=== PATIENT | male | born 1960 | race African-American/Black ===

== ENCOUNTER 2021-01-30 08:27 | Emergency (ER) | payer OTHER ==
--- NOTE | 2021-01-30 10:20 | EDPHYS ---
Physician Documentation [facility] Name: Min Mensah Age: 60 yrs Sex: Male : 1960 Arrival Date: 01/30/2021 Time: 08:29 Bed 20 Private MD: JOÃO Physician El Poe HPI: 01/30 10:29 This 60 yrs old Black Male presents to ER via Ambulatory with complaints of Hand Pain - pm1 left. 10:29 The patient or guardian reports pain. The complaints affect the dorsum of left hand and pm1 left wrist. Context: resulted from a fall, while walking. Onset: The symptoms/episode began/occurred 1 month(s) ago. Modifying factors: The symptoms are alleviated by nothing, the symptoms are aggravated by movement, and use. Associated signs and symptoms: Pertinent negatives: cyanosis distally, decreased sensation distally, numbness distally, tingling distally. Severity of symptoms: in the emergency department the symptoms are unchanged. The patient has not experienced similar symptoms in the past, Has had a prior left thumb injury in the past. The patient has not recently seen a physician. Patient caught his fall with his left hand 1 month ago and reports that at night time he has pain to the dorsum of his left hand and left wrist. Patient reports worse after work. Historical: - Allergies: 09:00 Morphine; iw - Home Meds: 09:00 None [Active]; iw - PMHx: 09:00 Hypertension; Degenerative disc disease; iw - Immunization history:: Flu vaccine is not up to date. - Social history:: Smoking status: Patient reports the use of cigarette tobacco products, smokes one pack cigarettes per day. ROS: 10:29 Constitutional: Negative for fever, chills, and weight loss, Cardiovascular: Negative pm1 for chest pain, palpitations, and edema, Respiratory: Negative for shortness of breath, cough, wheezing, and pleuritic chest pain. 10:29 Skin: Negative for injury, rash, and discoloration, Neuro: Negative for headache, weakness, numbness, tingling, and seizure. 10:29 MS/extremity: Positive for pain, of the left hand and left wrist, Negative for decreased range of motion, deformity, paresthesias, swelling. Exam: 10:29 Constitutional: This is a well developed, well nourished patient who is awake, alert, pm1 and in no acute distress. Head/Face: Normocephalic, atraumatic. 10:29 Skin: Warm, dry with normal turgor. Normal color with no rashes, no lesions, and no evidence of cellulitis. 10:29 Cardiovascular: Exam negative for acute changes, Rate: normal, Rhythm: regular, Pulses: no pulse deficits are appreciated. 10:29 Respiratory: Exam negative for acute changes, respiratory distress, shortness of breath. 10:29 Musculoskeletal/extremity: no tenderness present to left fingers and hand. FROM intact and patient able to make a fist. FROM intact to left wrist and left elbow. No tenderness to wrist, forearm, or elbow. 10:29 Neuro: Orientation: is normal, Mentation: is normal, Sensation: is normal, no obvious gross deficits. Vital Signs: 08:57 BP 135 / 87; Pulse 82; Resp 16; Temp 98.4; Pulse Ox 99% on R/A; Weight 72.57 kg; Height iw 5 ft. 9 in. (175.26 cm); Pain 09/04; 08:57 Body Mass Index 23.63 (72.57 kg, 175.26 cm) iw MDM: 09:06 Patient medically screened. pm1 09:33 ED course: Patient refused pain medications in the ER. pm1 10:18 Data reviewed: vital signs. Data interpreted: Pulse oximetry: on room air is 99 %. pm1 Interpretation: normal. 10:18 ED course: Negative x-ray. Like sprain with overuse. 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 Will discharge home with splint. 12:59 ED course: HEMOTHERAPIST aware reviewed. pm1 01/30 09:19 Order name: Wrist Left (3 View) XRAY; Complete Time: 12:27 pm1 01/30 10:15 Order name: Wrist Splint; Complete Time: 10:25 pm1 Administered Medications: 10:25 Drug: Ibuprofen 600 mg Route: PO; iw Disposition: 13:39 Co-signature as Attending Physician, El ARTHUR I agree with the assessment and onesimo plan of care. Disposition: 01/30/21 10:19 Discharged to Home. Impression: Unspecified sprain of left wrist. - Condition is Stable. - Discharge Instructions: Wrist Pain, Wrist Splint. - Prescriptions for Tramadol 50 mg Oral Tablet - take 1 tablet by ORAL route every 8 hours as needed; 12 tablet. - Medication Reconciliation Form, Thank You Letter, Antibiotic Education, Prescription Opioid Use form. - Follow up: Emergency Department; When: As needed; Reason: Worsening of condition. Follow up: Private Physician; When: 2 - 3 days; Reason: Recheck today's complaints, Continuance of care, Re-evaluation by your physician. - Problem is new. - Symptoms have improved. Signatures: Dispatcher [employer] EDEl Win MD MD cha Williams, Irene, RN RN iw Jorgito Constantino NP BUSINESS INSIGHT AND ANALYTICS MANAGER pm1 Corrections: (The following items were deleted from the chart) 10:43 10:19 01/30/2021 10:19 Discharged to Home. Impression: Unspecified sprain of left iw wrist. Condition is Stable. Forms are Medication Reconciliation Form, Thank You Letter, Antibiotic Education, Prescription Opioid Use. Follow up: Emergency Department; When: As needed; Reason: Worsening of condition. Follow up: Private Physician; When: 2 - 3 days; Reason: Recheck today's complaints, Continuance of care, Re-evaluation by your physician. Problem is new. Symptoms have improved. pm1
--- NOTE | 2021-01-30 10:20 | ER ---
Nurse's Notes [facility] Name: Min Mensah Age: 60 yrs Sex: Male : 1960 Arrival Date: 01/30/2021 Time: 08:29 Bed 20 Private MD: Diagnosis: Unspecified sprain of left wrist Presentation: 01/30 08:57 Chief complaint: Patient states: fell about a month ago, tried to catch himself with iw his left hand, has been having pain in his left hand and wrist since then , has previous injury to that area. Coronavirus screen: At this time, the client does not indicate any symptoms associated with coronavirus-19. Ebola Screen: Patient negative for fever greater than or equal to 101.5 degrees Fahrenheit, and additional compatible Ebola Virus Disease symptoms Patient denies exposure to infectious person. Patient denies travel to an Ebola-affected area in the 21 days before illness onset. No symptoms or risks identified at this time. Initial Sepsis Screen: Does the patient meet any 2 criteria? No. Patient's initial sepsis screen is negative. Does the patient have a suspected source of infection? No. Patient's initial sepsis screen is negative. Risk Assessment: Do you want to hurt yourself or someone else? Patient reports no desire to harm self or others. Onset of symptoms was December 28, 2020. 08:57 Method Of Arrival: Ambulatory iw 08:57 Acuity: JULISSA 4 iw Historical: - Allergies: 09:00 Morphine; iw - Home Meds: 09:00 None [Active]; iw - PMHx: 09:00 Hypertension; Degenerative disc disease; iw - Immunization history:: Flu vaccine is not up to date. - Social history:: Smoking status: Patient reports the use of cigarette tobacco products, smokes one pack cigarettes per day. Screenin:02 Abuse screen: Denies threats or abuse. Denies injuries from another. Nutritional iw screening: No deficits noted. Tuberculosis screening: No symptoms or risk factors identified. Fall Risk None identified. Fall in past 12 months (25 points). Assessment: 09:01 General: Appears in no apparent distress. Behavior is calm, cooperative. Pain: iw Complains of pain in left hand, dorsal aspect of left forearm and left wrist. Neuro: Level of Consciousness is awake, alert, obeys commands, Oriented to person, place, time, situation, Moves all extremities. Full function. Cardiovascular: Patient's skin is warm and dry. Respiratory: Respiratory effort is even, unlabored, Respiratory pattern is regular, symmetrical. Derm: Skin is healthy with good turgor. Musculoskeletal: Range of motion: intact in all extremities. 10:07 Reassessment: Patient appears in no apparent distress at this time. Patient and/or iw family updated on plan of care and expected duration. Pain level reassessed. Patient is alert, oriented x 3, equal unlabored respirations, skin warm/dry/pink. Vital Signs: 08:57 BP 135 / 87; Pulse 82; Resp 16; Temp 98.4; Pulse Ox 99% on R/A; Weight 72.57 kg; Height iw 5 ft. 9 in. (175.26 cm); Pain 1010; 08:57 Body Mass Index 23.63 (72.57 kg, 175.26 cm) iw ED Course: 08:29 Patient arrived in ED. am2 08:59 Triage completed. iw 09:00 Arm band placed on. iw 09:01 Latoya Sethi RN is Primary Nurse. iw 09:05 No provider procedures requiring assistance completed. Patient did not have IV access iw during this emergency room visit. 09:06 Jorgito Constantino NP is PHCP. pm1 09:06 El Poe MD is Attending Physician. pm1 09:15 Patient has correct armband on for positive identification. iw 09:35 Wrist Left (3 View) XRAY In Process Unspecified. EDMS Administered Medications: 10:25 Drug: Ibuprofen 600 mg Route: PO; iw Outcome: 10:19 Discharge ordered by . pm1 10:42 Discharged to home ambulatory. iw 10:42 Condition: good 10:42 Discharge instructions given to patient, Instructed on discharge instructions, follow up and referral plans. medication usage, Demonstrated understanding of instructions, follow-up care, medications, Prescriptions given X 1. 10:43 Patient left the ED. iw Signatures: Dispatcher [employer] EDMS Latoya Sethi RN RN iw Jorgito Constantino NP GOLF BALL COVER TREATER pm1 Lilly Lundy am2
[2021-01-30] MEDS ORDERED: IBUPROFEN 200 MG TAB PO ONE (10:34)
--- NOTE | 2021-01-30 11:37 | RAD REPORT ---
EXAM DESCRIPTION: RAD - Wrist Left 3 View - 01/30/2021 9:29 am CLINICAL HISTORY: PAIN Pain COMPARISON: No comparisons FINDINGS: No fracture or dislocation seen. No foreign body or other soft tissue abnormality. IMPRESSION: Negative examination.
[2021-01-30 14:48] VITALS: BP 135/87; TEMP 98.4; O2SAT 99
== END 2021-01-30 10:43 | disposition home or self-care (01) ==
LOC: ER 08:27
DX: S63.502A Unspecified sprain of left wrist, initial encounter (principal); W18.30XA Fall on same level, unspecified, initial encounter; Y93.01 Activity, walking, marching and hiking; Y92.9 Unspecified place or not applicable; I10 Essential (primary) hypertension; Z88.5 Allergy status to narcotic agent
CPT/HCPCS: 99283

== ENCOUNTER 2021-03-09 11:00 | Emergency (ER) | payer OTHER ==
--- OUTSIDE RECORDS SUMMARY | 2021-03-09 11:03 | XMS REPORT | Continuity of Care Document ---
:1960 Author Organization [facility] t Address [address] [place] [address] Care Team Providers Name Role Phone Unavailable Unavailable Unavailable Problems This patient has no known problems. Allergies, Adverse Reactions, Alerts This patient has no known allergies or adverse reactions. Medications Ordered Filled Start Stop Current Ordering Indication Dosage Frequency Signature Comments Components Source Medication Medication Date Date Medication? Clinician (SIG) Name Name tramadol 50 tramadol 50 No tramadol [facility] mg tablet mg tablet 50 mg da TAKE 1 TAKE 1 tablet [facility] TABLET BY TABLET BY TAKE 1 al MOUTH THREE MOUTH THREE TABLET BY Health TIMES A DAY TIMES A DAY MOUTH [facility] THREE h TIMES A Program DAY alprazolam alprazolam No alprazolam [place] 1 mg tablet 1 mg tablet 1 mg d a TAKE 1 TAKE 1 tablet [facility] TABLET BY TABLET BY TAKE 1 al MOUTH MOUTH TABLET BY Health EVERYDAY AT EVERYDAY AT MOUTH [facility] BEDTIME BEDTIME EVERYDAY h AT BEDTIME Program amlodipine amlodipine No amlodipine [place] 10 mg 10 mg 10 mg da tablet TAKE tablet TAKE tablet [facility] 1 TABLET BY 1 TABLET BY TAKE 1 al MOUTH EVERY MOUTH EVERY TABLET BY Health DAY DAY MOUTH [facility] EVERY DAY h Program hydrocodone hydrocodone No hydrocodon [place] 10 10 e 10 da mg-acetamin mg-acetamin mg-acetami [facility] ophen 325 ophen 325 nophen 325 al mg tablet mg tablet mg tablet Health TAKE 1 TAKE 1 TAKE 1 [facility] TABLET BY TABLET BY TABLET BY h MOUTH 3 MOUTH 3 MOUTH 3 Progra m TIMES A DAY TIMES A DAY TIMES A NEEDED NEEDED DAY NEEDED meloxicam meloxicam No meloxicam [place] 15 mg 15 mg 15 mg da tablet TAKE tablet TAKE tablet [facility] 1 TABLET BY 1 TABLET BY TAKE 1 al MOUTH EVERY MOUTH EVERY TABLET BY Health DAY DAY MOUTH [facility] EVERY DAY h Program Immunizations Ordered Immunization Filled Immunization Date Status Commen ts Source Name Name COVID-19 mRNA, COVID-19, mRNA, 2021-03-01 Completed Vignesh roa LNP-S, PF, 100 LNP-S, PF, 100 16:18:31 [facility] mcg/0.5 mL dose mcg/0.5 mL dose Outr each Program Procedures This patient has no known procedures. Plan of Care Planned Activity Planned Date Details Comments Source Future Appointment 2021-03-29 13:00:00 Covid Covid 19 [facility], [address]; , [place] [address] Encounters Start End Encounter Admission Attending Care Care Encounter Source Date/Time Date/Time Type Type Clinicians Facility Department ID 2021-03-01 2021-03-01 Angela GREGORY [facility] [id number] [facility] 00:00:00 00:00:00 Ramírez Pinto MD: [address] [facility] [address] [facility] [address], [place], [place] Out[place] [id number] h , Ph. Program Results This patient has no known results.
[2021-03-09] MEDS ORDERED: PANTOPRAZOLE 40MG TABLET PO ONE (14:09)
--- NOTE | 2021-03-09 14:15 | RAD REPORT ---
EXAM DESCRIPTION: USExtremity Venous Uni Ltd03/09/2021 2:06 pm CLINICAL HISTORY: left leg pain COMPARISON: None. FINDINGS: Left common femoral, superficial femoral, popliteal and posterior tibial veins are compre ssible and demonstrate augmentation. Doppler demonstrates good flow. IMPRESSION: No evidence of deep venous thrombosis involving the left lower extremity.
--- NOTE | 2021-03-09 14:41 | RAD REPORT ---
EXAM DESCRIPTION: RAD - Knee Left 3 View - 03/09/2021 2:28 pm CLINICAL HISTORY: Left knee pain FINDINGS: No fracture or dislocation is seen. A 28 millimeter calcific density distal left femur probably either an infarct or enchondroma. It is r ecommended that the patient have follow up x-ray 3 months to assess stability. Mild medial joint space narrowing. Spur extends off of superior aspect of the patella
--- NOTE | 2021-03-09 15:23 | ER ---
Nurse's Notes [facility] Name: Min Mensah Age: 60 yrs Sex: Male : 1960 Arrival Date: 03/09/2021 Time: 11:02 Bed 26 Private MD: Diagnosis: Pain in left knee Presentation: 03/09 11:15 Chief complaint: Patient states: 1. L knee pain and swelling since Sunday. No known ll1 trauma. 2. "Ulcers" acting up and N/V for 2 months. No longer has PCP. Coronavirus screen: Client denies travel out of the [place] in the last 14 days. At this time, the client does not indicate any symptoms associated with coronavirus-19. Ebola Screen: Patient denies travel to an Ebola-affected area in the 21 days before illness onset. Initial Sepsis Screen: Does the patient meet any 2 criteria? No. Patient's initial sepsis screen is negative. Does the patient have a suspected source of infection? Yes: Acute abdominal pain. Risk Assessment: Do you want to hurt yourself or someone else? Patient reports no desire to harm self or others. Onset of symptoms was March 07, 2021. 11:15 Method Of Arrival: Ambulatory ll1 11:15 Acuity: JULISSA 3 ll1 Historical: - Allergies: 11:15 Morphine; ll1 - Home Meds: 13:24 None [Active]; sv - PMHx: 11:15 Degenerative disc disease; Hypertension; ll1 - PSHx: 11:15 None; ll1 - Immunization history:: Client reports receiving the 1st dose of the Covid vaccine, Flu vaccine is not up to date. - Social history:: Smoking status: Patient reports the use of cigarette tobacco products, smokes one pack cigarettes per day. Screenin:24 Abuse screen: Denies threats or abuse. Denies injuries from another. Nutritional sv screening: No deficits noted. Tuberculosis screening: No symptoms or risk factors identified. Fall Risk No fall in past 12 months (0 pts). No secondary diagnosis (0 pts). No IV (0 pts). Ambulatory Aid- None/Bed Rest/Nurse Assist (0 pts). Gait- Weak (10 pts.). Mental Status- Oriented to own ability (0 pts). Total Tilley Fall Scale indicates No Risk (0-24 pts). Assessment: 13:19 General: Appears uncomfortable, Behavior is calm, cooperative. Pain: Complains of pain sv in lateral aspect of left knee and medial aspect of left knee Pain currently is 7 out of 10 on a pain scale. Aggravated by repositioning, weight bearing. Neuro: Level of Consciousness is awake, alert, obeys commands, Oriented to person, place, time, situation, Weakness in left leg(s) Gait is unsteady. Respiratory: Airway is patent Respiratory effort is even, unlabored, Respiratory pattern is regular, symmetrical. GI: Reports nausea, vomiting. Musculoskeletal: Range of motion: intact in all extremities. Vital Signs: 11:15 BP 153 / 100; Pulse 65; Resp 17; Temp 97.7; Pulse Ox 98% ; Weight 71.21 kg; Height 5 ll1 ft. 9 in. (175.26 cm); Pain 10/10; 13:22 BP 132 / 90; Pulse 66; Pulse Ox 100% on R/A; Pain 7/10; sv 14:09 BP 133 / 92; Pulse 63; Resp 18; Pulse Ox 100% ; sv 11:15 Body Mass Index 23.18 (71.21 kg, 175.26 cm) ll1 ED Course: 11:02 Patient arrived in ED. ds1 11:14 Arm band placed on. ll1 11:17 Triage completed. ll1 12:58 Mikki Marquez FNP-C [facility]. kb 12:58 Edgar Amaya MD is Attending Physician. kb 13:19 Jackeline Corcoran, LALIT is Primary Nurse. sv 13:25 Patient has correct armband on for positive identification. Placed in gown. Bed in low sv position. Call light in reach. Side rails up X 1. nurse monitoring on. Pulse ox on. NIBP on. Warm blanket given. 14:06 US Extremity Venous Unilateral Ltd In Process Unspecified. EDMS 14:07 X-ray(s) taken. sv 15:39 Christen Negrete, LALIT is Primary Nurse. ss 15:40 No provider procedures requiring assistance completed. Patient did not have IV access ss during this emergency room visit. Rashawn wrap to left knee. Administered Medications: 14:11 Drug: ProTONIX 40 mg Route: PO; sv 15:40 Follow up: Response: No adverse reaction ss Outcome: 15:22 Discharge ordered by . kb 15:40 Discharged to home ambulatory. ss 15:40 Condition: good 15:40 Discharge instructions given to patient, Instructed on discharge instructions, follow up and referral plans. medication usage, Demonstrated understanding of instructions, follow-up care, medications, Prescriptions given X 1. 15:41 Patient left the ED. Signatures: Dispatcher [employer] EDMS Mikki Marquez, PROOF MACHINE OPERATOR SUPERVISOR-C PROOF MACHINE OPERATOR SUPERVISOR-Jackeline Gaston RN RN Nadya Flores ds1 Christen Negrete RN RN ss Lewis, Lynsay, RN RN ll1
--- NOTE | 2021-03-09 15:23 | EDPHYS ---
Physician Documentation [facility] Name: Min Mensah Age: 60 yrs Sex: Male : 1960 Arrival Date: 03/09/2021 Time: 11:02 Bed 26 Private MD: ED Physician Edgar Amaya HPI: 03/09 15:29 This 60 yrs old Black Male presents to ER via Ambulatory with complaints of Knee Pain, kb Nausea/Vomiting. 15:29 The patient presents with pain, tenderness. The complaints affect the posterior aspect kb of left knee and medial aspect of left knee and lateral aspect of left knee. Context: The problem was sustained at home, resulted from an unknown cause, the patient can fully bear weight, the patient is able to ambulate. Onset: The symptoms/episode began/occurred 3 day(s) ago. Modifying factors: The symptoms are alleviated by nothing. the symptoms are aggravated by movement, weight bearing. Associated signs and symptoms: The patient has no apparent associated signs or symptoms. Treatment prior to arrival includes: no previous treatment. Severity of symptoms: At their worst the symptoms were moderate, in the emergency department the symptoms are unchanged. The patient has not experienced similar symptoms in the past. The patient has not recently seen a physician. Pt reports he woke up with left knee pain on Sunday and it hasn't gotten any better. Also reports he doesn't have a pcp anymore to prescribe his medicine for ulcers so they have been acting up. Historical: - Allergies: 11:15 Morphine; ll1 - Home Meds: 13:24 None [Active]; sv - PMHx: 11:15 Degenerative disc disease; Hypertension; ll1 - PSHx: 11:15 None; ll1 - Immunization history:: Client reports receiving the 1st dose of the Covid vaccine, Flu vaccine is not up to date. - Social history:: Smoking status: Patient reports the use of cigarette tobacco products, smokes one pack cigarettes per day. ROS: 15:27 Constitutional: Negative for fever, chills, and weight loss, Respiratory: Negative for kb shortness of breath, cough, wheezing, and pleuritic chest pain, Skin: Negative for injury, rash, and discoloration, Neuro: Negative for headache, weakness, numbness, tingling, and seizure. 15:27 MS/extremity: Positive for pain, of the left knee. 15:27 Abdomen/GI: Positive for "ulcers acting up". kb Exam: 15:28 Constitutional: This is a well developed, well nourished patient who is awake, alert, kb and in no acute distress. Head/Face: Normocephalic, atraumatic. Respiratory: Respirations even and unlabored. No increased work of breathing, no retractions or nasal flaring. Abdomen/GI: Soft, non-tender. No distention Skin: Warm, dry with normal turgor. Normal color. Neuro: Awake and alert, GCS 15, oriented to person, place, time, and situation. Moves all extremities. Normal gait. 15:28 Musculoskeletal/extremity: Extremities: grossly normal except: noted in the posterior aspect of left knee and medial aspect of left knee and lateral aspect of left knee: pain, tenderness, ROM: intact in all extremities, Circulation is intact in all extremities. Sensation intact. Weight bearing: able to fully bear weight. Vital Signs: 11:15 BP 153 / 100; Pulse 65; Resp 17; Temp 97.7; Pulse Ox 98% ; Weight 71.21 kg; Height 5 ll1 ft. 9 in. (175.26 cm); Pain 10/10; 13:22 BP 132 / 90; Pulse 66; Pulse Ox 100% on R/A; Pain 7/10; sv 14:09 BP 133 / 92; Pulse 63; Resp 18; Pulse Ox 100% ; sv 11:15 Body Mass Index 23.18 (71.21 kg, 175.26 cm) ll1 MDM: 12:58 Patient medically screened. kb 14:44 Data reviewed: vital signs, nurses notes. Data interpreted: Pulse oximetry: on room air kb is 100 %. Interpretation: normal. Counseling: I had a detailed discussion with the patient and/or guardian regarding: the historical points, exam findings, and any diagnostic results supporting the discharge/admit diagnosis, radiology results, the need for outpatient follow up, a orthopedic surgeon, to return to the emergency department if symptoms worsen or persist or if there are any questions or concerns that arise at home. 03/09 13:33 Order name: US Extremity Venous Unilateral Ltd; Complete Time: 14:18 kb 03/09 13:33 Order name: Knee Left 3 View XRAY kb 03/09 14:42 Order name: RAD; Complete Time: 14:43 EDHI 03/09 15:23 Order name: Rashawn Wrap; Complete Time: 15:40 kb Administered Medications: 14:11 Drug: ProTONIX 40 mg Route: PO; sv 15:40 Follow up: Response: No adverse reaction ss Disposition: 03/10 07:28 Co-signature as Attending Physician, Edgar Amaya MD I agree with the assessment and kdr plan of care. Disposition: 03/09/21 15:22 Discharged to Home. Impression: Pain in left knee. - Condition is Stable. - Discharge Instructions: Knee Pain, [id number]. - Prescriptions for Protonix 40 mg Oral Tablet - take 1 tablet by ORAL route once daily; 30 tablet. - Medication Reconciliation Form, Thank You Letter, Antibiotic Education, Prescription Opioid Use form. - Follow up: Emergency Department; When: As needed; Reason: Worsening of condition. Follow up: Private Physician; When: 2 - 3 days; Reason: Recheck today's complaints, Continuance of care, Re-evaluation by your physician. Signatures: Dispatcher [employer] [facility] Mikki Marquez, PIGMENT MIXER-C PIGMENT MIXER-CkJackeline Yao, RN RN Edgar Amaya MD MD [facility] Christen Negrete, LALIT RN ss Dain Leyva RN RN ll1 Corrections: (The following items were deleted from the chart) 03/09 15:41 15:22 03/09/2021 15:22 Discharged to Home. Impression: Pain in left knee. Condition is ss Stable. Forms are Medication Reconciliation Form, Thank You Letter, Antibiotic Education, Prescription Opioid Use. Follow up: Emergency Department; When: As needed; Reason: Worsening of condition. Follow up: Private Physician; When: 2 - 3 days; Reason: Recheck today's complaints, Continuance of care, Re-evaluation by your physician. kb
[2021-03-09 15:50] VITALS: TEMP 97.7
[2021-03-09 15:51] VITALS: O2SAT 100
[2021-03-09 15:52] VITALS: BP 133/92
== END 2021-03-09 15:41 | disposition home or self-care (01) ==
LOC: ER 11:00
DX: M25.562 Pain in left knee (principal); R11.2 Nausea with vomiting, unspecified; I10 Essential (primary) hypertension; F17.210 Nicotine dependence, cigarettes, uncomplicated; Z88.5 Allergy status to narcotic agent
CPT/HCPCS: 93971; 99284

== ENCOUNTER 2022-05-06 | Emergency (ER) | payer OTHER ==
--- OUTSIDE RECORDS SUMMARY | 2022-05-06 00:03 | XMS REPORT | Continuity of Care Document ---
:1960 Author Organization [facility] t Address [address] [place] [address] Care Team Providers Name Role Phone COVID_19 Attending Clinician Unavailable COVID_19 Admitting Clinician Unavailable Payers Payer Name Policy Type Policy Number Effective Date Expiration Date S ource Problems This patient has no known problems. Allergies, Adverse Reactions, Alerts This patient has no known allergies or adverse reactions. Medications Ordered Filled Start Stop Current Ordering Indication Dosage Frequency Signature Comments Components Source Medication Medication Date Date Medication? Clinician (SIG) Name Name alprazolam alprazolam No alprazolam [place] 1 mg [...] DAY MOUTH [place] EVERY DAY h Program tramadol 50 tramadol 50 No tramadol [place] mg tablet mg tablet 50 mg da TAKE 1 TAKE 1 tablet [facility] TABLET BY TABLET BY TAKE 1 al MOUTH THREE MOUTH THREE TABLET BY Health TIMES A DAY TIMES A DAY MOUTH [place] THREE h TIMES A Program DAY Immunizations Ordered Immunization Filled Immunization Date Status Commen ts Source Name Name COVID-Brennon mRNA, COVID-19, mRNA, 2021-10-28 Completed [place] cris[place] LNP-S, PF, 100 LNP-S, PF, 100 12:46:14 [facility] mcg/0.5 mL dose mcg/0.5 mL dose Outr each Program (Moderna) (Moderna) COVID-19, mRNA, COVID-19, mRNA, 2021-03-29 Completed [place] crispin LNP-S, PF, 100 LNP-S, PF, 100 13:26:01 [facility] mcg/0.5 mL dose mcg/0.5 mL dose Outr each Program (Moderna) (Moderna) COVID-19, mRNA, COVID-19, mRNA, 2021-03-01 Completed [place] cris[place] LNP-S, PF, 100 LNP-S, PF, 100 16:18:31 [facility] mcg/0.5 mL dose mcg/0.5 mL dose Outr each Program (Moderna) (Moderna) Procedures This patient has no known procedures. Encounters Start End Encounter Admission Attending Care Care Encounter Source Date/Time Date/Time Type Type Clinicians Facility Department ID 2021-10-28 2021-10-28 Outpatient COVID_19 [facility] [id number] - [place] 12:56:00 12:56:00 [id number] [facility] 2021-10-28 2021-10-28 Angela MEHOP [place] - [id number] M [place] 00:00:00 00:00:00 Ramírez Pinto MD: [address] [facility] [place] [phone] h , Ph. Program 2021-03-29 2021-03-29 Outpatient COVID_Brennon [facility] [id number] - [place] 01:27:00 01:27:00 [id number] [facility] 2021-03-29 2021-03-29 Angela ROLDANSHAYLA [place] - [id number] M [place] 00:00:00 00:00:00 Ramírez Pinto MD: [address] [facility] [address], [place], [place] [phone] h , Ph. Program 2021-03-01 2021-03-01 Outpatient COVID_19 WASHAYLA [facility] [id number] [place] 04:30:00 04:30:00 [id number] [facility] 2021-03-01 2021-03-01 Angela GREGORY [place] - [id number] [place] 00:00:00 00:00:00 Ramírez Pinto MD: [address] [facility] [address], [place], [place] [phone] h , Ph. Program Results This patient has no known results.
[2022-05-06] MEDS ORDERED: TETANUS & DIPHTHERIA TOX,ADULT 0.5 ML VIAL ONE (01:07)
[2022-05-06] MEDS ORDERED: NA CHLORIDE 0.9% 0 ML ONE (01:07)
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
[2022-05-06 01:21] VITALS: BP 148/91; TEMP 98.6; O2SAT 98
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
== END 2022-05-06 01:16 | disposition left against medical advice (07) ==
LOC: ER
DX: S61.214A Laceration without foreign body of right ring finger without damage to nail, initial encounter (principal); S61.216A Laceration without foreign body of right little finger without damage to nail, initial encounter; V49.40XA Driver injured in collision with unspecified motor vehicles in traffic accident, initial encounter; I10 Essential (primary) hypertension; Z88.5 Allergy status to narcotic agent
CPT/HCPCS: 90714; 99282; J7030

== ENCOUNTER 2022-05-09 08:46 | Emergency (ER) | payer OTHER ==
--- OUTSIDE RECORDS SUMMARY | 2022-05-09 08:48 | XMS REPORT | Continuity of Care Document ---
:1960 Author Organization [facility] t Address [address] [place] [address] Care Team Providers Name Role Phone COVID_19 [...] Facility Department ID 2021-10-28 2021-10-28 Outpatient COVID_19 [facility] [id number] - [place] 12:56:00 12:56:00 [id number] [facility] 2021-10-28 2021-10-28 Anglea MEHOP [place] - [id number] M [place] 00:00:00 00:00:00 Ramírez Pinto MD: [address] [facility] [place] [phone] h , Ph. Program 2021-03-29 2021-03-29 Outpatient COVID_Brennon [facility] [id number] - [place] 01:27:00 01:27:00 [id number] [facility] 2021-03-29 2021-03-29 Angela ROLDANSHAYLA [place] - [id number] M [place] 00:00:00 00:00:00 Ramírez Pinto MD: [address] [facility] [address], [place], [place] [phone] h , Ph. Program 2021-03-01 2021-03-01 Outpatient COVID_19 NJSHAYLA [facility] [id number] [place] 04:30:00 04:30:00 [id number] [facility] 2021-03-01 2021-03-01 Angela GREGORY [place] - [id number] [place] 00:00:00 00:00:00 Ramírez Pinto MD: [address] [facility] [address], [place], [place] [phone] h , Ph. Program Results This patient has no known results.
--- NOTE | 2022-05-09 09:13 | ER ---
Nurse's Notes [facility] Name: Min Mensah Age: 62 yrs Sex: Male : 1960 Arrival Date: 05/09/2022 Time: 08:50 Bed Waiting Private MD: Diagnosis: Laceration without foreign body of right hand, initial encounter Presentation: 05/09 08:54 Chief complaint: Patient states: he injured his right pinky finger SundayMay 052021. Patient presents to the ED today requesting sutures for the injury. Coronavirus screen: At this time, the client does not indicate any symptoms associated with coronavirus-19. Ebola Screen: No symptoms or risks identified at this time. Initial Sepsis Screen: Does the patient meet any 2 criteria? No. Patient's initial sepsis screen is negative. Does the patient have a suspected source of infection? No. Patient's initial sepsis screen is negative. Risk Assessment: Do you want to hurt yourself or someone else? Patient reports no desire to harm self or others. Onset of symptoms was May 05, 2022. 08:54 Method Of Arrival: Ambulatory ap3 08:54 Acuity: JULISSA 4 ap3 Triage Assessment: 08:56 General: Appears in no apparent distress. Behavior is calm, cooperative. Pain: ap3 Complains of pain in right hand. Neuro: Level of Consciousness is awake, alert, obeys commands, Oriented to person, place, time, situation, Appropriate for age Speech is normal. Cardiovascular: Patient's skin is warm and dry. Respiratory: Airway is patent Respiratory effort is even, unlabored. Musculoskeletal: Range of motion: limited in MCP of right little finger. Injury Description: Laceration sustained to palmar aspect of proximal phalanx of right little finger was sustained 5 days. Historical: - Allergies: 08:55 Morphine; ap3 - Home Meds: 08:55 None [Active]; ap3 - PMHx: 08:55 Degenerative disc disease; Hypertension; ap3 - Immunization history:: Client reports receiving the 2nd dose of the Covid vaccine, and booster Last tetanus immunization: up to date. - Social history:: Smoking status: Patient reports the use of cigarette tobacco products, smokes one pack cigarettes per day. - Family history:: not pertinent. - Hospitalizations: : No recent hospitalization is reported. Screenin:57 Abuse screen: Denies threats or abuse. Nutritional screening: No deficits noted. ap3 Tuberculosis screening: No symptoms or risk factors identified. Fall Risk None identified. Vital Signs: 08:54 BP 140 / 89; Pulse 84; Resp 16; Temp 98.2; Pulse Ox 99% ; Weight 72.57 kg; Height 5 ft. ap3 9 in. (175.26 cm); Pain 6/10; 08:54 Body Mass Index 23.63 (72.57 kg, 175.26 cm) ap3 ED Course: 08:50 Patient arrived in ED. rg4 08:55 Triage completed. ap3 08:57 Patient has correct armband on for positive identification. ap3 08:57 Arm band placed on left wrist. ap3 08:58 Steven Pierce MD is Attending Physician. rn 09:12 Demetrio Morales MD is Referral Physician. rn 09:33 No provider procedures requiring assistance completed. Patient did not have IV access ap3 during this emergency room visit. Administered Medications: No medications were administered Medication: 09:33 VIS not applicable for this client. ap3 Outcome: 09:12 Discharge ordered by . rn 09:33 Discharged to home ambulatory. ap3 09:33 Condition: good 09:33 Discharge instructions given to patient, Instructed on discharge instructions, follow up and referral plans. medication usage, wound care, Demonstrated understanding of instructions, follow-up care, medications, wound care, Prescriptions given X 1. 09:33 Patient left the ED. ap3 Signatures: Steven Pierce MD MD rn Garcia, Rubi rg4 Lilly Hdz RN RN ap3 Corrections: (The following items were deleted from the chart) 09:49 08:54 Chief complaint: Patient states: he injured his right pinky finger Sunday ap3 2021. Patient presents to the ED today requesting sutures for the injury. ap3
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
[2022-05-09 09:40] VITALS: BP 140/89; TEMP 98.2; O2SAT 99
== END 2022-05-09 09:33 | disposition home or self-care (01) ==
LOC: ER 08:46
DX: S61.411A Laceration without foreign body of right hand, initial encounter (principal); I10 Essential (primary) hypertension; F17.210 Nicotine dependence, cigarettes, uncomplicated; Z88.5 Allergy status to narcotic agent
CPT/HCPCS: 99282